=== PATIENT | male | born 1955 | race Caucasian/White ===

== ENCOUNTER 2018-09-12 09:00 | Emergency (ER) | payer OTHER ==
[2018-09-12] MEDS ORDERED: Diazepam TAB(*) 5 MG PO ONE (09:45)
[2018-09-12] MEDS ORDERED: Ketorolac INJ* 60 MG/2 ML VIAL IM ONE (09:46)
--- NOTE | 2018-09-12 10:49 | ED ---
Back Pain - HPI Summary HPI Summary: Patient is a 62-year-old female who presents emergency department for increased low back pain over the last few days. Patient notes that him and his are in the area visiting given a recent in the family and resided in [place]. Patient states he gets back pain occasionally. He denies any recent injuries. Patient states he feels as though his low back is spasming. He has been taking prescribed Flexeril no improvement. He denies radicular pain into legs. Denies numbness, tingling or weakness in legs. Denies bowel or bladder incontinence or retention. Denies recent illness, fever, abdominal pain, vomiting, diarrhea, urinary symptoms. Symptoms are mild in severity. Moving and walking makes symptoms worse. Rest makes symptoms better. - History of Current Complaint Chief Complaint: EDBackInjuryPain Stated Complaint: BACK SPASMS Time Seen by Provider: 09/12/18 09:16 Hx Obtained From: Patient Pain Intensity: 9 - Allergies/Home Medications Allergies/Adverse Reactions: Allergies Allergy/AdvReac Type Severity Reaction Status Date / Time peanut Allergy GI Upset Verified 09/12/18 09:04 Sulfa (Sulfonamide Allergy Vomiting Verified 09/12/18 09:05 Antibiotics) Home Medications: Home Medications Cyclobenzaprine TAB* [Flexeril 10 MG TAB*] 10 mg PO BID PRN 09/12/18 [History Confirmed 09/12/18] PMH/Surg Hx/FS Hx/Imm Hx Previously Healthy: Yes Infectious Disease History: No Infectious Disease History: Denies: Traveled Outside the [place] in Last 30 Days - Family History Known Family History: Positive: Non-Contributory - Social History Occupation: Unemployed Lives: With Family Alcohol Use: Rare Substance Use Type: Reports: Prescribed Smoking Status (MU): Former Smoker Review of Systems Constitutional: Negative Negative: Fever, Chills Gastrointestinal: Negative Negative: Abdominal Pain, Vomiting, Diarrhea, Nausea Genitourinary: Negative Positive: Other - back pain Negative: Weakness, Paresthesia, Numbness All Other Systems Reviewed And Are Negative: Yes Physical Exam Triage Information Reviewed: Yes Vital Signs On Initial Exam: Initial Vitals Temp Pulse Resp BP Pulse Ox 97.7 F 98 16 148/106 99 09/12/18 09:01 09/12/18 09:01 09/12/18 09:01 09/12/18 09:09/12/18 09:01 Vital Signs Reviewed: Yes Appearance: Positive: Well-Appearing - Pt. lying in bed in NAD. present. Skin: Positive: Warm, Dry Head/Face: Positive: Normal Head/Face Inspection Eyes: Positive: Normal, EOMI Neck: Positive: Supple Musculoskeletal: Positive: Other - 5/5 strength in bilateral LEs with flexion and dorsiflexion. Mild positive straight leg test bilaterally. No midline tenderness to back. Neurological: Positive: Normal, Alert, Oriented to Person Place, Time, CN Intact II-III Psychiatric: Positive: Affect/Mood Appropriate Diagnostics - Vital Signs Vital Signs Temp Pulse Resp BP Pulse Ox 09/12/18 10:14 88 155/95 97 09/12/18 10:00 82 97 09/12/18 09:51 18 09/12/18 09:44 85 143/100 99 09/12/18 09:14 92 157/107 99 09/12/18 09:01 97.7 F 98 16 148/106 99 - Laboratory Lab Statement: Any lab studies that have been ordered have been reviewed, and results considered in the medical decision making process. Back Pain Course/Dx - Course Course Of Treatment: Pt. presenting with exacerbation of low back pain. No falls or injuries. He is afebrile. No neurosensory deficits or evidence of cauda equina syndrome. Pt. was given IM toradol and po valium with moderate improvement of his sxs. On re-exam pt. is walking around the room without his cane and is feeling better. [employer] referred and no red flags noted. A few days of valium and motrin. [facility]vised pt. [facility] for a close f.u apt. To apply warm compresses. Avoid heavy lifting. To return to ER if sxs change or worsen. - Diagnoses Differential Diagnosis/HQI/PQRI: Positive: Arthritis, Epidural Abscess, Fracture , Herniated Disc, Septic Arthritis, Strain, Sprain Provider Diagnoses: Muscle spasm, Back pain Discharge - Sign-Out/Discharge Documenting (check all that apply): Patient Departure - Discharge Plan Condition: Improved Disposition: HOME Prescriptions: Diazepam TAB(NF) [Valium TAB(NF)] 2 mg PO TID PRN #9 tab MDD 3 tablets PRN Reason: Spasms - Back Ibuprofen TAB* [Motrin TAB* 800 MG] 800 mg PO Q8H #20 tab Patient Education Materials: Low Back Strain (ED), Muscle Spasm (ED) Referrals: [facility] [Outside] Merritt Cho MD [Primary Care Provider] - Additional Instructions: Call the [facility] on Friday to schedule a follow up appointment Take medication as directed Apply warm compress to back Avoid heavy lifting Return to ER for fever, increased pain, leg numbness, tingling, weakness, loss of bowel or bladder function - Billing Disposition and Condition Condition: IMPROVED Disposition: Home
[2018-09-12 11:41] VITALS: BP 149/93
== END 2018-09-12 11:40 | disposition home or self-care (01) ==
LOC: ED 09:00
DX: M62.830 Muscle spasm of back (principal); M54.5 Low back pain; Z88.2 Allergy status to sulfonamides; Z91.010 Allergy to peanuts; Z87.891 Personal history of nicotine dependence
CPT/HCPCS: 96372; 99282; A9270-GY; J1885